=== PATIENT | male | born 1965 | race Caucasian/White ===

== ENCOUNTER 2018-04-27 21:24 | Emergency (ER) | payer SELFPAY ==
[~2018-04-27] VITALS: Wt 115.0 kg
[2018-04-27 21:29] VITALS: Wt 115.0 kg
[2018-04-27] MEDS ORDERED: SODIUM CHLORIDE 0.9% 1L BAG IV* STA (21:34)
[2018-04-27] MEDS ORDERED: ONDANSETRON 4 MG INJ IV STA (21:37)
[2018-04-27] MEDS ORDERED: ONDANSETRON 4 MG INJ ONE (21:37)
[2018-04-27] MEDS ORDERED: INSU100I33 SC (22:31)
[2018-04-27] MEDS ORDERED: INSU100C SQ (22:31)
[2018-04-27] MEDS ORDERED: LOSA25TA6 PO (22:32)
[2018-04-27] MEDS ORDERED: FURO40TA4 PO (22:32)
--- NOTE | 2018-04-28 00:20 | ERD ---
ER Documentation Chief Complaint Chief Complaint bib ra from home for generalized weakness, recieved chemo today HPI This is a 53-year-old male who presents for generalized weakness and nausea and vomiting. He has a history of metastatic colorectal cancer, he was seen in outside hospital, for the same symptoms, he took [place] today, which he does not take regularly and had some vomiting. He has not had a fever, he has no abdomin al pain. Family suspected that this could be related to [place], but brought him in to get checked to make sure that there was not something else going on ROS All systems reviewed and are negative except as per history of present illness. Medications Home Meds Reported Medications Furosemide* (Furosemide*) 40 Mg Tablet, 40 MG PO DAILY, TAB 04/27/18 Losartan Potassium* (Losartan Potassium*) 25 Mg Tablet, 25 MG PO DAILY, TAB 04/27/18 Insulin Lispro (Humalog) 100 Unit/1 Ml Cartridge, 0 SQ SLIDING SCALES, EA 04/27/18 Insulin Glargine,Hum.rec.anlog (Basaglar Kwikpen U-100) 100 Unit/1 Ml Insuln.pen, 60 UNIT SC QHS, EA 04/27/18 Allergies Allergies: Coded Allergies: No Known Allergy (Unverified , 04/27/18) PMhx/Soc History of Surgery: Yes ([facility] ) Anesthesia Reaction: No Hx Neurological Disorder: No Hx Respiratory Disorders: No Hx Cardiac Disorders: Yes (TACHYCARDIA ) Hx Psychiatric Problems: No Hx Miscellaneous Medical Probl: Yes (COLORECTAL CANCER, DM II) Hx Alcohol Use: No Hx Substance Use: No Hx Tobacco Use: No Smoking Status: Never smoker Physical Exam Vitals Vital Signs Date Temp Pulse Resp B/P (MAP) Pulse Ox O2 O2 Flow FiO2 Time Delivery Rate 04/28/18 88 22 142/88 98 Room Air 00:42 (106) 04/27/18 98.2 81 15 158/93 96 Room Air 22:13 (114) 04/27/18 98.8 80 19 155/89 100 21:29 (111) Physical Exam Const: No acute distress Head: Atraumatic Eyes: Normal Conjunctiva ENT: Normal External Ears, Nose and Mouth. Neck: Full range of motion. No meningismus. Resp: Clear to auscultation bilaterally Cardio: Regular rate and rhythm, no murmurs Abd: Soft, non tender, non distended. Normal bowel sounds Skin: No petechiae or rashes Back: No midline or flank tenderness Ext: No cyanosis, or edema Neur: Awake and alert Psych: Normal Mood and Affect Result Diagram: 04/27/18220604/27/182206 Results 24 hrs Laboratory Tests Test 04/27/18 22:07 04/27/18 22:31 White Blood Count 12.3 10^3/ul Red Blood Count 5.17 10^6/ul Hemoglobin 13.5 g/dl Hematocrit 41.0 % Mean Corpuscular Volume 79.3 fl Mean Corpuscular Hemoglobin 26.1 pg Mean Corpuscular Hemoglobin Concent 32.9 g/dl Red Cell Distribution Width 16.8 % Platelet Count 173 10^3/UL Mean Platelet Volume 9.0 fl Immature Granulocytes % 0.400 % Neutrophils % 78.2 % Lymphocytes % 14.3 % Monocytes % 6.3 % Eosinophils % 0.6 % Basophils % 0.2 % Nucleated Red Blood Cells % 0.0 /100WBC Immature Granulocytes # 0.050 10^3/ul Neutrophils # 9.6 10^3/ul Lymphocytes # 1.8 10^3/ul Monocytes # 0.8 10^3/ul Eosinophils # 0.1 10^3/ul Basophils # 0.0 10^3/ul Nucleated Red Blood Cells # 0.0 10^3/ul Prothrombin Time 12.2 Sec Prothrombin Time Ratio 1.0 INR International Normalized Ratio 0.89 Activated Partial Thromboplast Time 25.7 Sec Urine Color YELLOW Urine Clarity CLEAR Urine pH 6.0 Urine Specific [place] 1.022 Urine Ketones NEGATIVE mg/dL Urine Nitrite NEGATIVE mg/dL Urine Bilirubin NEGATIVE mg/dL Urine Urobilinogen NEGATIVE mg/dL Urine Leukocyte Esterase NEGATIVE Ami/ul Urine Microscopic RBC 2 /HPF Urine Microscopic WBC 1 /HPF Urine Hemoglobin NEGATIVE mg/dL Urine Glucose 3+ mg/dL Urine Total Protein 2+ mg/dl Sodium Level 136 mmol/L Potassium Level 4.3 mmol/L Chloride Level 95 mmol/L Carbon Dioxide Level 30 mmol/L Anion Gap 11 Blood Urea Nitrogen 18 mg/dl Creatinine 0.90 mg/dl Est Glomerular Filtrat Rate mL/min > 60 mL/min Glucose Level 217 mg/dl Calcium Level 9.0 mg/dl Total Bilirubin 0.4 mg/dl Direct Bilirubin 0.00 mg/dl Indirect Bilirubin 0.4 mg/dl Aspartate Amino Transf (AST/SGOT) 20 IU/L Alanine Aminotransferase (ALT/SGPT) 12 IU/L Alkaline Phosphatase 70 IU/L Troponin I < 0.012 ng/ml Total Protein 7.6 g/dl Albumin 4.1 g/dl Globulin 3.50 g/dl Albumin/Globulin Ratio 1.17 Lipase 46 U/L Bedside Glucose 204 mg/dL Current Medications Medications Dose Sig/Chloé Start Time Status Last (Trade) Ordered Route PRN Stop Time Admin Dose Reason Admin Sodium 1,000 ml BOLUS OVER 2 04/27/18 DC 04/27/18 Chloride HOURS STAT 21:34 04/27/18 21:34 (NS) IV* 21:38 Ondansetron 4 mg ONCE STAT 04/27/18 DC 04/27/18 HCl (Zofran IV 21:37 04/27/18 21:37 Inj) 21:38 Ondansetron 4 mg STK-MED 04/27/18 DC HCl (Zofran ONCE .ROUTE 21:37 04/27/18 Inj) 22:26 Procedures/MDM 53-year-old presents for evaluation of nausea vomiting associated with generalized weakness, patient was monitored in the ED, and was given antiemetic, and apparent improvement in his symptoms. His chest x-ray showed possible mild pulmonary vascular congestion, however he had no signs or symptoms of CHF, such as JVD, or rales on exam, he is on Lasix. His labs are unremarkable aside from mild leukocytosis, which is likely reactive in the setting of vomiting, he otherwise had no focal signs or symptoms of infection, and when I reevaluated him, he appeared comfortable, sleeping and in no acute distress, I discussed findings and plan of care with family who felt comfortable taking the patient home, he had no fever, and at this point I do not suspect an occult infectious process, however I cautioned to return for any fever, any worsening symptoms or any other concerns, at discharge patient with no acute distress. EKG: Rate/Rhythm: Normal Sinus Rhythm QRS, ST, T-waves: No changes consistent w/ acute ischemia Impression: No evidence of ischemia or arrhythmia Departure Diagnosis: Primary Impression: Acute weakness Additional Impression: Vomiting Vomiting type: unspecified Vomiting Intractability: unspecified Nausea presence: without nausea Qualified Codes: R11.11 - Vomiting without nausea Condition: JASWINDER Brice MD Apr 28, 2018 00:20
[2018-04-28 00:42] VITALS: BP 142/88; PULSE 88; RESP 22
== END 2018-04-28 00:43 | disposition home or self-care (01) ==
LOC: E/R 21:24
DX: R53.1 Weakness (principal); R11.11 Vomiting without nausea; E11.9 Type 2 diabetes mellitus without complications; Z79.4 Long term (current) use of insulin; Z85.038 Personal history of other malignant neoplasm of large intestine
CPT/HCPCS: 36415; 71045; 80053; 81001; 82962; 83690; 84484; 85025; 85610; 85730; 87086; 87400; 96374; 99285; J2405; J7030; 93005